=== PATIENT | male | born 1960 ===

== ENCOUNTER → 2018-07-08 22:00 | Outpatient (REF) | payer OTHER, SELFPAY ==
[2018-07-08 22:26] LABS: Alanine Aminotransferase 18 IU/L (21-72); Albumin 4.3 g/dL (3.5-5.0); Albumin Globulin Ratio 1.7 (1.0-2.8); Alkaline Phosphatase 78 U/L (38-126); Aspartate Aminotransferase 24 IU/L (17-59); Bilirubin Total 0.7 mg/dL (0.2-1.3); Blood Urea Nitrogen 18 mg/dL (9-20); Calcium 9.5 mg/dL (8.4-10.2); Carbon Dioxide 29 mmol/L (22-32); Chloride 102 mmol/L (98-107); Estimated Glomerular Filt Rate > 60.0 mL/min (>60); Globulin 2.5 g/dL (1.7-4.1); Glucose 86 mg/dL (70-100); HEMOLYSIS 28 (0-50); Lipase 61 U/L (23-300); Potassium 4.4 mmol/L (3.4-5.1); Sodium 142 mmol/L (137-145); Total Protein 6.8 g/dL (6.3-8.2)
[2018-07-08 23:17] LABS: Add Manual Diff / Slide Review NO; Basophils Percent Auto 0.6 % (0-2); Eosinophils Percent Auto 2.3 % (2-4); Hematocrit 46.7 % (41-53); Hemoglobin 15.6 g/dL (13.5-17.5); Mean Corpuscular HGB Conc 33.3 % (30-36); Mean Corpuscular Hemoglobin 28.3 PG (26-34); Neutrophils Absolute Auto 4500 /uL (3000-5900); Neutrophils Percent Auto 69.1 % (50-75); Platelet Count 297 X10^3/uL (150-400); Red Cell Distribution Width 14.2 % (11.6-14.8); White Blood Cell Count 6.6 X10^3/uL (4.5-11.0)
[2018-07-11 13:50] LABS: PSA, Total 0.8 ng/mL (< 4.1)
== END ==
LOC: LAB 22:00
PROVIDERS: Visit Provider Family Medicine
DX: R53.83 Other fatigue (principal); N42.89 Other specified disorders of prostate
CPT/HCPCS: 80053; 83690; 84153; 84154; 85025